=== PATIENT | female | born 1980 | race Two or more races ===

== ENCOUNTER 2019-07-29 10:57 | Emergency (ER) | payer OTHER ==
[~2019-07-29] VITALS: Ht 170.2 cm; Wt 99.8 kg
[~2019-07-29 10:57] MED LIST: LEVSIN/SL0.125 MG SL; PROTONIX40 MG PO; ZOFRAN4 MG PO
== END 2019-07-29 19:07 | disposition home or self-care (01) ==
LOC: ER 10:57
DX: D64.89 Other specified anemias (principal)

== ENCOUNTER 2025-08-30 14:57 | Emergency (ER) | payer OTHER ==
[~2025-08-30] VITALS: Ht 170.2 cm; Wt 113.4 kg
[2025-08-30 16:27] VITALS: BP 116/83; O2SAT 96
[2025-08-30] MEDS ORDERED: LIPITOR40 M1 PO (16:30)
[2025-08-30] MEDS ORDERED: METHYLPREDNISOLONE SOD SUCC 125 MG VIAL IM STA (17:57)
[2025-08-30] MEDS ORDERED: CEFTRIAXONE SODIUM 2,000 MG VIAL IV STA (17:57)
[2025-08-30] MEDS ORDERED: CEFTRIAXONE SODIUM 2,000 MG VIAL ONE (18:05)
[2025-08-30] MEDS ORDERED: METHYLPREDNISOLONE SOD SUCC 40 MG VIAL ONE (18:05)
[2025-08-30 18:24] LABS: BASO % 0.5 % (0.1-1.2); EOS # 0.09 (0.04-0.54); EOS % 1.2 % (0.7-7.0); LYMPH # 2.53 (1.18-3.74); LYMPH % 32.6 % (19.3-53.1); MEAN PLATELET VOLUME 11.20 fl (9.4-12.4); MONO # 0.56 (0.24-0.82); MONO % 7.2 % (4.7-12.5); NEUT # 4.51 (1.56-6.13); NEUT % 58.2 % (34.0-71.1); RED CELL DISTRIBUTION WIDTH 14.7 % (11.6-14.4)
[2025-08-30 18:38] LABS: ERYTHROCYTE SEDIMENTATION RATE 25 mm/hr (0-20)
[2025-08-30 19:15] LABS: ALT/SGPT 48 U/L (12-78); AST/SGOT 33 U/L (15-37); BILIRUBIN TOTAL 0.38 mg/dL (0.3-1.2); BUN CREA RATIO 21 (7.0-25.0); CREATININE SERUM 0.78 mg/dL (0.55-1.02); GFR 79.51; GLOBULINA 4.0 G/DL (2.4-3.5); GLUCOSE FASTING 104 mg/dL (65-100); OSMOLALITY SERUM 286 MOSM/KG (275-295)
== END 2025-08-30 22:36 | disposition home or self-care (01) ==
LOC: ER 14:57
PROVIDERS: Physician Assistant Medical
DX: H66.91 Otitis media, unspecified, right ear (principal); H70.899 Other mastoiditis and related conditions, unspecified ear